=== PATIENT | male | born 1975 | race American Indian/Alaskan Native ===

== ENCOUNTER 2016-05-17 00:46 | Emergency (ER) | payer SELFPAY ==
[2016-05-17 01:07] VITALS: BP 139/94
[2016-05-17] MEDS ORDERED: TYLENOL PO ONE (03:57)
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
[2016-05-17] MEDS ORDERED: MOTRIN PO ONE (05:16)
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
--- NOTE | 2016-05-17 07:36 | XRay Report ---
LEFT HAND: The bony architecture is intact. Bony alignment is normal. No soft tissue abnormalities are seen. The joint spaces appear preserved. IMPRESSION: Normal left hand.
--- NOTE | 2016-05-17 07:39 | XRay Report ---
LEFT HAND: The bony architecture is intact. Bony alignment is normal. No soft tissue abnormalities are seen. The joint spaces appear preserved. IMPRESSION: Normal left hand. LEFT WRIST: Routine views demonstrate the carpal bones to be well mineralized with well preserved bony mineralization and interosseous joint spaces. The carpal and adjacent articular bones have normal contours. The surrounding soft tissues are unremarkable. IMPRESSION: Normal study.
== END 2016-05-17 05:27 | disposition home or self-care (01) ==
LOC: ED 00:46
DX: S06.0X0A Concussion without loss of consciousness, initial encounter (principal); M79.642 Pain in left hand; Y08.89XA Assault by other specified means, initial encounter; Y93.9 Activity, unspecified; Y92.9 Unspecified place or not applicable; Y99.9 Unspecified external cause status
CPT/HCPCS: 70450; 72125

== ENCOUNTER 2017-08-12 21:18 | Emergency (ER) | payer SELFPAY ==
[2017-08-13 02:26] VITALS: BP 117/77
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
[2017-08-13 03:37] LABS: Hematocrit 39.2 % (35.5-45.6); Hemoglobin 12.5 gm/dl (11.8-15.2); Mean Corpuscular HGB Conc 32 % (32-34); Mean Corpuscular Volume 80 fl (84-94); Platelet Count 206 K/mm3 (140-440); Red Blood Count 4.91 M/mm3 (3.65-5.03)
[2017-08-13 03:41] LABS: Mean Corpuscular Hemoglobin 26 pg (28-32)
[2017-08-13 03:49] LABS: INR 0.95 (0.87-1.13); Partial Thromboplastin Time 29.2 Sec. (24.2-36.6)
[2017-08-13 03:51] LABS: BUN/Creatinine Ratio 12; Blood Urea Nitrogen 11 mg/dL (9-20); Calcium 9.3 mg/dL (8.4-10.2); Hemolysis Index 6
[2017-08-13] MEDS ORDERED: MOTRIN PO ONE (04:45)
[2017-08-13] MEDS ORDERED: ZOFRAN ODT ONE (04:46)
[2017-08-13] MEDS ORDERED: MOTRIN ONE (04:46)
[2017-08-13] MEDS ORDERED: ZOFRAN ODT PO ONE (04:48)
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
== END 2017-08-13 08:30 | disposition left against medical advice (07) ==
LOC: ED 21:18
DX: R10.9 Unspecified abdominal pain (principal); R51 Headache; Z53.21 Procedure and treatment not carried out due to patient leaving prior to being seen by health care provider
CPT/HCPCS: 36415; 70450; 71046; 72125; 80048; 84484; 85027; 85610; 85730; 93005; 93010; Q0162

== ENCOUNTER 2018-10-27 19:35 | Emergency (ER) | payer OTHER ==
[2018-10-27 19:59] VITALS: BP 127/81
--- NOTE | 2018-10-27 20:13 | Emergency Department Report ---
Blank Doc - Documentation Documentation: This is a 43-year-old male that presents with right leg pain and swelling. Was seen in Urgent care and was told to come to the ED to r/o DVT. This initial assessment/diagnostic orders/clinical plan/treatment(s) is/are subject to change based on patient's health status, clinical progression and re- assessment by fellow clinical providers in the ED. Further treatment and workup at subsequent clinical providers discretion. Patient/guardians urged not to elope from the ED as their condition may be serious if not clinically assessed and managed. Initial orders include: 1- Patient sent to [facility] for further evaluation and treatment 2- Doppler US
--- NOTE | 2018-10-27 21:47 | Vascular Lab Report ---
PROCEDURE: VL VENOUS DUPLEX LE RT TECHNIQUE: Duplex Doppler sonography of the right lower extremity deep veins. Howell scale imaging wit h and without compression, spectral waveform analysis with and without augmentation, and color flow D oppler were employed. HISTORY: right leg pain COMPARISONS: None FINDINGS: Deep Venous Thrombus: None Soft tissue abnormality: None IMPRESSION: No evidence of deep venous thrombosis This document is electronically signed by Robbie Tabares MD., October 27 2018 09:45:54 PM ET
[2018-10-27] MEDS ORDERED: NORCO 5/325 PO ONE (23:05)
--- NOTE | 2018-10-28 00:39 | Emergency Department Report ---
ED Lower Extremity HPI - General Chief Complaint: Extremity Injury, Lower Stated Complaint: RIGHT LEG INJURY AT WORK Time Seen by Provider: 10/27/18 20:07 Source: patient Mode of arrival: Ambulatory Limitations: Physical Limitation - History of Present Illness Initial Comments: pt presents for right knee pain and swelling x 1 week s/p swist and and fall at work, dx with mcl tear presents tonight for right LE pain and aching seen at urgent care today referred to ed for r/o dvt, there is no posterior calf tenderness no pain to dorsiflexion MD Complaint: knee injury Onset/Timin -: week(s) Injury: Leg: Right, Knee: Right Type of Injury: hyperextension Place: work Severity: moderate Severity scale (0 -10): 5 Improves With: nothing Worsens With: weight bearing, movement, palpation Context: fall, other (twist ) Associated Symptoms: snap/pop sensation, swelling, able to partially bear weight. denies: numbness, tingling - Related Data Previous Rx's Medication Instructions Recorded Last Taken Type Acetaminophen/Codeine [Tylenol 1 tab PO Q6H PRN #12 tab 03/16/18 Unknown Rx /Codeine # 3 tab] Phenyleph/Pramoxin/Glycr/W.pet 51 gm RC BID #1 cream..g. 03/16/18 Unknown Rx [Preparation H Cream] Phenylephrine HCl/[place] Butter 1 each RC BID #1 box 03/16/18 Unknown Rx [Preparation H Suppository] Cyclobenzaprine [Flexeril] 10 mg PO TID PRN #30 tablet 10/28/18 Unknown Rx Naproxen [Naprosyn TAB] 500 mg PO BID PRN #30 tablet 10/28/18 Unknown Rx Allergies Allergy/AdvReac Type Severity Reaction Status Date / Time No Known Allergies Allergy Verified 11/25/15 00:30 ED Review of Systems ROS: Stated complaint: RIGHT LEG INJURY AT WORK Other details as noted in HPI Constitutional: denies: chills, fever Eyes: denies: eye pain, eye discharge, vision change ENT: denies: ear pain, throat pain Respiratory: denies: cough, shortness of breath, wheezing Cardiovascular: denies: chest pain, palpitations Endocrine: no symptoms reported Gastrointestinal: denies: abdominal pain, nausea, diarrhea Genitourinary: denies: urgency, dysuria Musculoskeletal: joint swelling, other (right LE pain ). denies: back pain, arthralgia Skin: denies: rash, lesions Neurological: denies: headache, weakness, paresthesias Psychiatric: denies: anxiety, depression Hematological/Lymphatic: denies: easy bleeding, easy bruising ED Past Medical Hx - Past Medical History Previous Medical History?: Yes Additional medical history: hemorrhoids - Surgical History Past Surgical History?: Yes Additional Surgical History: jaw surgery. tonsillectomy - Social History Smoking Status: Never Smoker - Medications Home Medications: Home Medications Medication Instructions Recorded Confirmed Last Taken Type Acetaminophen/Codeine [Tylenol 1 tab PO Q6H PRN #12 tab 03/16/18 Unknown Rx /Codeine # 3 tab] Phenyleph/Pramoxin/Glycr/W.pet 51 gm RC BID #1 cream..g. 03/16/18 Unknown Rx [Preparation H Cream] Phenylephrine HCl/[place] Butter 1 each RC BID #1 box 03/16/18 Unknown Rx [Preparation H Suppository] Cyclobenzaprine [Flexeril] 10 mg PO TID PRN #30 tablet 10/28/18 Unknown Rx Naproxen [Naprosyn TAB] 500 mg PO BID PRN #30 tablet 10/28/18 Unknown Rx ED Physical Exam - General Limitations: Physical Limitation General appearance: alert, in no apparent distress - Head Head exam: Present: atraumatic, normocephalic - Eye Eye exam: Present: normal appearance, PERRL, EOMI Pupils: Present: normal accommodation - ENT ENT exam: Present: normal exam, normal orophraynx, mucous membranes moist, TM's normal bilaterally, normal external ear exam - Neck Neck exam: Present: normal inspection, full ROM. Absent: tenderness, lymphadenopathy - Respiratory Respiratory exam: Present: normal lung sounds bilaterally. Absent: respiratory distress, wheezes, stridor, chest wall tenderness - Cardiovascular Cardiovascular Exam: Present: regular rate, normal heart sounds - GI/Abdominal GI/Abdominal exam: Present: soft, normal bowel sounds. Absent: distended, tenderness, guarding, rebound, rigid, bruit, hernia - Rectal Rectal exam: Present: deferred - Extremities Exam Extremities exam: Present: normal inspection, full ROM, tenderness, normal capillary refill, joint swelling. Absent: pedal edema, calf tenderness - Expanded Lower Extremity Exam Right Knee exam: Present: full ROM, tenderness, swelling, pain w/ pronation/supination, full knee extension. Absent: abrasion, laceration, deformity, crepidus, dislocation, erythema, effusion, posterior draw sign, pain/laxity with valgus, pain/laxity with varus Lower Leg exam: Present: full ROM, tenderness. Absent: swelling, abrasion, laceration, ecchymosis, deformity, crepidus, dislocation, erythema, palpable cord, Bárbara's sign Ankle exam: Present: normal inspection, full ROM. Absent: tenderness Foot/Toe exam: Present: full ROM, tenderness. Absent: swelling Neuro vascular tendon exam: Absent: pulse deficit, motor deficit, sensory deficit, tendon deficit Gait: Positive: observed and limited by pain - Back Exam Back exam: Present: normal inspection, full ROM. Absent: tenderness, CVA tenderness (R), CVA tenderness (L), muscle spasm, paraspinal tenderness, vertebral tenderness, rash noted - Neurological Exam Neurological exam: Present: alert, oriented X3, CN II-XII intact, normal gait, motor sensory deficit, reflexes normal - Psychiatric Psychiatric exam: Present: normal affect, normal mood - Skin Skin exam: Present: warm, dry, intact, normal color. Absent: rash ED Course Vital Signs 10/27/18 19:46 Temperature 98.7 F Pulse Rate 84 Respiratory 18 Rate Blood Pressure 127/81 O2 Sat by Pulse 99 Oximetry ED Lower Extremity MDM - Radiology Data Radiology results: report reviewed, image reviewed Ordering Physician: NATALIE BANKS NP Date of Service: 10/27/18 Procedure(s): VL venous duplex LE RT Accession Number(s): [id number] cc: NATALIE BANKS NP PROCEDURE: VL VENOUS DUPLEX LE RT TECHNIQUE: Duplex Doppler sonography of the right lower extremity deep veins. Howell scale imaging with and without compression, spectral waveform analysis with and without augmentation, and color flow Doppler were employed. HISTORY: right leg pain COMPARISONS: None FINDINGS: Deep Venous Thrombus: None Soft tissue abnormality: None IMPRESSION: No evidence of deep venous thrombosis This document is electronically signed by Rhys Tabares MD., October 27 2018 09:45:54 PM ET Transcribed By: [facility] [place] Dictated By: RHYS TABARES Electronically Authenticated By: RHYS TABARES Signed Date/Time: 10/27/182146 DD/ 16 TD/TT: 10/27/182117 - Medical Decision Making US RLE: No DVT there is negative Homans sign no pain to dorsiflexion alert extremity distal pulse in tact , plan continue knee immobilizer and crutches follow up with ortho in 2-3 days return to ed if symptoms worsen, pt dc'd to home with rx for nsaids, muscle relaxant, will follow up with ortho in 2-3 days. pt for dc to home in stable condition. Critical care attestation.: If time is entered above; I have spent that time in minutes in the direct care of this critically ill patient, excluding procedure time. ED Disposition Clinical Impression: Knee sprain Qualifiers: Encounter type: initial encounter Involved ligament of knee: unspecified ligament Laterality: right Qualified Code(s): S83.91XA - Sprain of unspecified site of right knee, initial encounter Disposition: DC-01 TO HOME OR SELFCARE Is pt being admited?: No Does the pt Need Aspirin: No Condition: Stable Instructions: Knee Pain (ED), Knee Sprain (ED) Prescriptions: Cyclobenzaprine [Flexeril] 10 mg PO TID PRN #30 tablet PRN Reason: Muscle Spasm Naproxen [Naprosyn TAB] 500 mg PO BID PRN #30 tablet PRN Reason: pain Referrals: CEDRICK TARIQ MD [Staff Physician] - 2-3 Days Forms: Work/School Release Form(ED) Time of Disposition: 00:40
== END 2018-10-28 01:06 | disposition home or self-care (01) ==
LOC: ED 19:35
DX: S83.91XA Sprain of unspecified site of right knee, initial encounter (principal); Z79.899 Other long term (current) drug therapy; W18.30XA Fall on same level, unspecified, initial encounter; Y93.89 Activity, other specified; Y92.89 Other specified places as the place of occurrence of the external cause; Y99.0 Civilian activity done for income or pay
CPT/HCPCS: 99283

== ENCOUNTER 2018-12-01 20:33 | Emergency (ER) | payer SELFPAY ==
[2018-12-01 20:47] VITALS: BP 115/82
--- NOTE | 2018-12-01 20:50 | Emergency Department Report ---
Blank Doc - Documentation Documentation: This is a 43-year-old male that presents with left finger pain, left ankle pain, and bilateral knees s/p fall. This initial assessment/diagnostic orders/clinical plan/treatment(s) is/are subject to change based on patient's health status, clinical progression and re-assessment by fellow clinical providers in the ED. Further treatment and workup at subsequent clinical providers discretion. Patient/guardians urged not to elope from the ED as their condition may be serious if not clinically assessed and managed. Initial orders include: 1- Patient sent to [facility] for further evaluation and treatment 2- xrays
--- NOTE | 2018-12-01 21:50 | XRay Report ---
CLINICAL DATA: pain s/p fall TECHNICAL DATA: Four views of the ankle were obtained in the AP, lateral, and obliques. FINDINGS: There is no acute fracture, dislocation, or subluxation. There is no joint effusion or soft tissue sw elling. The tibial plafond, ankle mortise, and talar dome are intact. IMPRESSION: No acute radiographic abnormality. Signer Name: Jagdeep Shaw MD Signed: 12/01/2018 9:46 PM Workstation Name: [id number]
--- NOTE | 2018-12-01 21:53 | XRay Report ---
CLINICAL DATA: pain s/p fall TECHNICAL DATA: AP, lateral, and oblique views obtained of the hand. FINDINGS: Bones are well-mineralized. No evidence of a fracture or dislocation. Soft tissues are normal. IMPRESSION: Normal examination of the hand. Signer Name: Jagdeep Shaw MD Signed: 12/01/2018 9:48 PM Workstation Name: [id number]
--- NOTE | 2018-12-01 21:54 | XRay Report ---
CLINICAL DATA: pain s/p fall TECHNICAL DATA: AP, both obliques, and lateral views of the right and left knee. FINDINGS: The bone mineralization is normal. There is normal alignment of the knee. There is no evidence of fra cture or dislocation. There is no significant joint effusion. The soft tissues are normal. IMPRESSION: No acute abnormality identified. Signer Name: Jagdeep Shaw MD Signed: 12/01/2018 9:49 PM Workstation Name: [id number]
[2018-12-01] MEDS ORDERED: NORCO 5/325 PO ONE (22:31)
--- NOTE | 2018-12-01 22:31 | Emergency Department Report ---
HPI - General Chief Complaint: Fall Time Seen by Provider: 12/01/18 20:48 - HPI HPI: PT HAS HAD RECENT ACL SURGERY AND TODAY HE FELL ON WET FLOOR SO HE COMES TO ER TO GET CHECKED. NO OTHER INJURIES. ED Past Medical Hx - Past Medical History Previous Medical History?: Yes Additional medical history: hemorrhoids - Surgical History Past Surgical History?: Yes Additional Surgical History: jaw surgery. tonsillectomy - Social History Smoking Status: Never Smoker - Medications Home Medications: Home Medications Medication Instructions Recorded Confirmed Last Taken Type Acetaminophen/Codeine [Tylenol 1 tab PO Q6H PRN #12 tab 03/16/18 Unknown Rx /Codeine # 3 tab] Phenyleph/Pramoxin/Glycr/W.pet 51 gm RC BID #1 cream..g. 03/16/18 Unknown Rx [Preparation H Cream] Phenylephrine HCl/[place] Butter 1 each RC BID #1 box 03/16/18 Unknown Rx [Preparation H Suppository] Cyclobenzaprine [Flexeril] 10 mg PO TID PRN #30 tablet 10/28/18 Unknown Rx Naproxen [Naprosyn TAB] 500 mg PO BID PRN #30 tablet 10/28/18 Unknown Rx ED Review of Systems ROS: Stated complaint: KNEE INJURY Other details as noted in HPI Comment: All other systems reviewed and negative Physical Exam - Physical Exam Vital Signs: Vital Signs 12/01/18 20:43 Temperature 98.8 F Pulse Rate 99 H Respiratory 18 Rate Blood Pressure 115/82 O2 Sat by Pulse 99 Oximetry Physical Exam: S1S2 LUNGS CTA ABD SNT NO SWELLING OF EITHER KNEE ON CRUTCHES FROM PREVIOUS SURGERY DP PLUS 2 B ED Course Vital Signs 12/01/18 20:43 Temperature 98.8 F Pulse Rate 99 H Respiratory 18 Rate Blood Pressure 115/82 O2 Sat by Pulse 99 Oximetry ED Medical Decision Making - Radiology Data Radiology results: report reviewed, image reviewed - Medical Decision Making XRAY NEG MEDICATED FOR PAIN DC HOME WITH DC PLAN OF CARE Vital Signs 12/01/18 12/01/18 20:43 22:47 Temperature 98.8 F Pulse Rate 99 H 89 Respiratory 18 17 Rate Blood Pressure 115/82 O2 Sat by Pulse 99 98 Oximetry Critical care attestation.: If time is entered above; I have spent that time in minutes in the direct care of this critically ill patient, excluding procedure time. ED Disposition Clinical Impression: Fall from ground level, Contusion Disposition: DC-01 TO HOME OR SELFCARE Is pt being admited?: No Does the pt Need Aspirin: No Condition: Stable Instructions: Contusion in Adults (ED) Additional Instructions: continue home pain meds follow up with your ortho MD as scheduled all xrays normal today Referrals: ANDIE BRANDON MD [Primary Care Provider] - 3-5 Days CEDRIKC TARIQ MD [Staff Physician] - 3-5 Days Time of Disposition: 22:33
== END 2018-12-01 22:47 | disposition home or self-care (01) ==
LOC: ED 20:33
DX: S80.02XA Contusion of left knee, initial encounter (principal); S80.01XA Contusion of right knee, initial encounter; K64.9 Unspecified hemorrhoids; Z98.890 Other specified postprocedural states; Z90.89 Acquired absence of other organs; Z79.899 Other long term (current) drug therapy; W01.0XXA Fall on same level from slipping, tripping and stumbling without subsequent striking against object, initial encounter; Y93.89 Activity, other specified; Y92.89 Other specified places as the place of occurrence of the external cause; Y99.8 Other external cause status